=== PATIENT | male | born 1980 | race Caucasian/White ===

== ENCOUNTER 2020-07-20 09:02 | Day surgery (SDC) | payer OTHER ==
[2020-07-10 16:08] LABS: CLARITY,URINE CLEAR (Clear); COLOR,URINE YELLOW (Yellow); GLUCOSE, URINE NEGATIVE (Neg); KETONES,URINE NEGATIVE (Neg); LEUKOCYTE ESTERASE ,URINE NEGATIVE (Neg); NITRITES, URINE NEGATIVE (Neg); OCCULT BLOOD,URINE NEGATIVE (Neg); PROTEIN,URINE NEGATIVE (Neg); UROBILINOGEN,URINE 0.2 E.U/dL (0.2-1.0)
[2020-07-10 16:15] LABS: UA COLLECTION TYPE CLN CATCH MIDSTREAM
[2020-07-10 16:17] LABS: BASOPHILS # (AUTO) 0.1 X10'3 (0-0.2); BASOPHILS % (AUTO) 0.8 % (0-1); EOSINOPHILS # (AUTO) 0.4 X10'3 (0-0.9); EOSINOPHILS % (AUTO) 4.9 % (0-6); LYMPHOCYTES # (AUTO) 2.3 X10'3 (1.1-4.8); LYMPHOCYTES % (AUTO) 31.2 % (21-51); MEAN CORPUSCULAR HEMOGLOBIN 31.3 PG (27.0-31.0); MEAN CORPUSCULAR HGB CONC 34.2 g/dL (33.0-36.5); MEAN CORPUSCULAR VOLUME 91.5 FL (78-98); MEAN PLATELET VOLUME 8.6 FL (7.4-10.4); MONOCYTES # (AUTO) 0.4 X10'3 (0-0.9); MONOCYTES % (AUTO) 5.8 % (2-12); NEUTROPHILS # (AUTO) 4.2 X10'3 (1.8-7.7); NEUTROPHILS % (AUTO) 57.3 % (42-75); PRE OP HEMATOCRIT 45.3 % (42.0-52.0); PRE OP HEMOGLOBIN 15.5 g/dL (14.0-17.9); PRE OP PLATELET COUNT 224 X10'3 (140-440); RED BLOOD COUNT 4.95 X10'6 (4.70-6.10); RED CELL DISTRIBUTION WIDTH 12.9 % (11.5-14.5)
[2020-07-10 16:24] LABS: HEMOGLOBIN A1C 6.9 % (4.5-6.2)
[2020-07-10 16:28] LABS: ALBUMIN 4.2 G/DL (3.4-5.0); ALBUMIN/GLOBULIN RATIO 1.1 (1.1-1.5); ALKALINE PHOSPHATASE 56 IU/L (46-116); BLOOD UREA NITROGEN 20 MG/DL (7-18); CALCIUM 9.7 MG/DL (8.5-10.1); CHLORIDE 107 MMOL/L (99-107); PRE OP ALT 37 U/L (30-65); PRE OP ANION GAP 7 (8-16); PRE OP AST 12 U/L (10-37); PRE OP BILIRUB, TOTAL 0.7 MG/DL (0.0-1.0); PRE OP GLUCOSE 117 MG/DL (70-104); PRE OP POTASSIUM 4.3 MMOL/L (3.4-5.1); PRE OP SODIUM 143 MMOL/L (135-145); TOTAL CARBON DIOXIDE 29.5 MMOL/L (24-32); TOTAL PROTEIN 7.9 G/DL (6.4-8.2); eGFR 83 ML/MIN
[~2020-07-20] VITALS: Ht 185.4 cm; Wt 124.3 kg
[~2020-07-20 09:02] MED LIST: ATOR40TA PO; CETI-90 PO; CYAN500T46 PO; IBUP-1984 PO; METF-900 PO; PANT-47 PO; ceFAZolin inj. 3,000 MG in normal saline 100ml IV soln 100 ML IV ONE; famotidine 20mg tablet PO ONE; ringers solution, lacted 1,000 ML IV SCH
[2020-07-20 09:30] VITALS: BP 128/81
[2020-07-20] MEDS ORDERED: bacitracin 15gm ointment TP ONE (12:54)
[2020-07-20] MEDS ORDERED: BUPIVAcaine/PF 2.5 mg/ml (0.25%) 30ml vial ONE (12:54)
[2020-07-20] MEDS ORDERED: sevoflurane 250ml liquid IH ONE (12:58)
[2020-07-20] MEDS ORDERED: fentaNYL/PF 50MCG/1 ML 2ML syringe ONE ×2 (13:00→15:18)
[2020-07-20] MEDS ORDERED: MIDAZolam 1 MG/ML 5ML VIAL ONE (13:01)
[2020-07-20] MEDS ORDERED: ROPIVAcaine 0.5% (5mg/ml) 30ml vial ONE (14:17)
[2020-07-20] MEDS ORDERED: glycopyrrolate 0.2mg/ml inj ONE (14:22)
[2020-07-20] MEDS ORDERED: rocuronium 10mg/ml inj IV ONE (14:22)
[2020-07-20] MEDS ORDERED: propofol inj 20 ML IV ONE (14:22)
[2020-07-20] MEDS ORDERED: acetaminophen 1,000mg/100ml IV 100 ML IV ONE (14:22)
[2020-07-20] MEDS ORDERED: LIDOcaine 1%/PF 5ML 10 MG/ML VIAL ONE (14:22)
[2020-07-20] MEDS ORDERED: neostigmine methylsulfate 1 MG/ML 10ml vial ONE (14:22)
[2020-07-20] MEDS ORDERED: ondansetron/PF 4mg/2ml inj ONE (14:23)
[2020-07-20] MEDS ORDERED: ondansetron/PF 4mg/2ml inj IV PRN (15:10)
[2020-07-20] MEDS ORDERED: meperidine/PF 25mg/ml syringe IV PRN ×3 (15:10)
[2020-07-20] MEDS ORDERED: morphine 2 MG/ML inj. syringe IV PRN (15:10)
[2020-07-20] MEDS ORDERED: proCHLORperazine 10 MG/2 ml inj IV PRN (15:10)
[2020-07-20] MEDS ORDERED: morphine 4 MG/ML inj SYRINge IV PRN (15:10)
[2020-07-20] MEDS ORDERED: ringers solution, lacted 1,000 ML IV SCH (15:10)
[2020-07-20 15:46] VITALS: BP 125/70
--- NOTE | 2020-07-20 15:46 | NUR ---
Received from OR via [facility] , accompanied by Anesthesiologist BRIAN and report given by Anesthesiolgist. PATIENT WITH 20G PIV IN LEFT UE RUNNING LR AT 100, DENIES PAIN RIGHT LE IN SPLINT THAT IS CDI. 10L MASK WITH 98% SATURATIONS. Addendum: 07/20/20 at 1607 by Binh Garza RN, RN Amended: Links added.
[2020-07-20 15:50] VITALS: BP 122/69
[2020-07-20 16:00] VITALS: BP 126/74
[2020-07-20 16:10] VITALS: BP 130/80
[2020-07-20 16:20] VITALS: BP 121/64
--- NOTE | 2020-07-20 16:36 | NUR ---
All dc criteria for discharge home has been met. IV taken out without complications. All questions answered regarding dc paperwork. Vss. Significant other present to take patient home. Dressings cdi and vital signs stable. Taken out via wheelchair to personal vehicle where patient taken home by family/friend. MAINTAINED NWB STATUS GETTING INTO VEHICLE. RELAYED TO PATIENT AND SPOUSE THAT PATIENT NEEDS TO BE ON CPAP X 24 HOURS WHILE AT HOME. Addendum: 07/20/20 at 1651 by Binh Marin - DIDIER VELÁSQUEZ Amended: Links added.
== END 2020-07-20 16:36 | disposition home or self-care (01) ==
LOC: PAS 09:02
PROVIDERS: ATTEND Podiatrist Foot & Ankle Surgery
DX: M20.11 Hallux valgus (acquired), right foot (principal); M19.071 Primary osteoarthritis, right ankle and foot; M21.611 Bunion of right foot; Z20.822 Contact with and (suspected) exposure to COVID-19; G89.18 Other acute postprocedural pain
CPT/HCPCS: 28297; 36415; 64447; 64450; 73620; 76000; 80053; 81003; 82948; 83036; 85025; 93005; A6223; C1713; J0131; J0690; J2250; J2405; J2704; J2710; J3010; J3490; J7120; U0003; A4215; A4618; A6253; A6449; A7000; J2795